=== PATIENT | male | born 1985 | race Caucasian/White ===

== ENCOUNTER 2023-11-28 12:08 | Emergency (ER) | payer OTHER, SELFPAY ==
--- NOTE | 2023-11-28 12:10 | ED.GENMED ---
History of Present Illness
<Marissa Mares PA-C - Last Filed: 11/28/23 13:44>
General
Chief Complaint: Seizure
Source: patient and records
Exam Limitations: none
Time Seen by Provider: 11/28/23 12:10
Nursing documentation reviewed up to this point in time: agreed with
History of Present Illness
History of Present Illness:
38 y/o male with a PMH of epilepsy, anxiety, depression who is presenting to the emergency department today with concerns of a seizure that happened few hours ago. Patient comes from court today where he had a seizure episode and the deputy present
called EMS. I spoke to the deputy present in court on the phone who reported that patient was seen in his chair and then he slouched, clenched his hands, and his eyes rolled in the back of his head for about a minute. Falcon reports that patient
was confused and postictal for around 5 minutes patient states that patient did not fall to the ground. Patient states that he had a seizure 2 weeks ago in which she was hospitalized at [facility] where they monitored him and change his seizure
medication from Keppra to Vimpat. Patient currently endorses a headache, which she states is no different than how he usually feels after her seizures. Patient denies shortness of breath, chest pain, motor weakness, syncopal episode, confusion.
Patient is in [place] because he is making a court appearance but he lives at [facility].
Past History
<Marissa Mares PA-C - Last Filed: 11/28/23 13:44>
Past History
ED Past Medical History: Seizures and Psychiatric
ED Past Surgical History: None
Social History
Tobacco: Non-smoker
Alcohol: Binge drinker
Drug: None
Personal: Single
Living: residential
Review of Systems
<Marissa Mares PA-C - Last Filed: 11/28/23 13:44>
Review of Systems
All Other Systems: ROS reviewed and negative except as documented in HPI and ROS
Phy Exam
<Marissa Mares PA-C - Last Filed: 11/28/23 13:44>
Physical Exam
Physical Exam:
Vitals: Patient's vital signs are stable
General: Patient is well appearing and in no acute distress
Skin: Warm and dry, no rashes or lesions
Head: Normocephalic, atraumatic
Cardiac: Regular rate and rhythm, no murmurs
Pulm: Normal respiratory effort
Abdomen: No abdominal tenderness
Musculoskeletal: Good muscle tone and bulk
Neuro: CN II-XII intact. AAOx3. No focal neurologic deficits.
Course
<Marissa Mares PA-C - Last Filed: 11/28/23 13:44>
Orders/Labs/Results
Orders:
Abnormal Lab Results
11/28/23
12:32
POC Glucose 117 H mg/dl
(70-99)
11/28/23 12:19
11/28/23 12:19
Vital Signs
Initial and Last Documented VS:
Initial Vital Signs
Temp Pulse Resp BP Pulse Ox
98.2 F 95 16 126/82 99
11/28/23 12:15 11/28/23 12:15 11/28/23 12:15 11/28/23 12:15 11/28/23 12:15
Last Documented Vital Signs
Temp Pulse Resp BP Pulse Ox
98.2 F 88 16 131/89 97
11/28/23 12:15 11/28/23 13:14 11/28/23 13:14 11/28/23 13:14 11/28/23 13:14
<Jc Waterman DO - Last Filed: 11/28/23 13:01>
Orders/Labs/Results
Orders:
Abnormal Lab Results
11/28/23
12:32
POC Glucose 117 H mg/dl
(70-99)
11/28/23 12:19
11/28/23 12:19
Vital Signs
Initial and Last Documented VS:
Initial Vital Signs
Temp Pulse Resp BP Pulse Ox
98.2 F 95 16 126/82 99
11/28/23 12:15 11/28/23 12:15 11/28/23 12:15 11/28/23 12:15 11/28/23 12:15
Last Documented Vital Signs
Temp Pulse Resp BP Pulse Ox
98.2 F 88 16 131/89 97
11/28/23 12:15 11/28/23 13:14 11/28/23 13:14 11/28/23 13:14 11/28/23 13:14
<Marissa Mares PA-C - Last Filed: 11/28/23 13:44>
MDM/Problems Addressed
Differential Diagnosis Includes:
petit mal seizure, grand mal seizure, syncope,
MDM/Problems Addressed:
seizure
Chronic conditions affecting care: HTN, Neurological disorder and Psychiatric illness
Acute Exacerbation and/or Progression of Chronic Illness: HTN, Neurological disorder and Psychiatric illness
<PHILIP Smith Last Filed: 11/28/23 13:44>
*Pulse Oximetry
Patient hypoxic: no
*Critical Care Note
Total Time (30-74mins, 75-104mins- exclusive of procedures): Not Applicable
Data Reviewed
Review of Other/Old Records Reveals: Records (reviewed ER physician documentation from 12/09/21, 09/06/16) and Discharge Summary (no discharge summaries in [facility] to review )
Source: patient and records (reviewed records from [facility], patient takes atorvastatin 10 m)
<PHILIP Smith Last Filed: 11/28/23 13:44>
Patient Management
Escalation/DeEscalation of care consider admission/obs:
38 y/o male with a PMH of epilepsy, anxiety, depression who is presenting to the emergency department today with concerns of a seizure that happened few hours ago. Patient comes from court today where he had a seizure episode and the deputy present
called EMS. Falcon described a petit mal seizure, same character of patients previous seizures. Patient was recently switched from keppra to vimpat, has been on vimpat for 2 weeks.
EMS reports that blood sugar was in the low 100s. Blood sugar here is 117. Spoke to neurology engagement quality consultant distillation operator helper who recommends increasing vimpat dose from 100 daily to 150 daily. I wrote paper script for patient, patient aware of plan.
ED Attending Note
<Marissa Mares PA-C - Last Filed: 11/28/23 13:44>
-
Portions of this chart may have been created with voice recognition software.� Occasional wrong word or��sound alike� substitutions may have occurred due to the inherent limitations of voice recognition software.
<Jc Waterman DO - Last Filed: 11/28/23 13:01>
ED Attending Note
Patient seen and examined by attending physician: Yes
I performed the substantive portion of visit, reviewed & personally made and approve the management plan that is documented in note by myself or ORLIN.: Yes
I performed a history and physical exam of patient and discussed management with resident, I reviewed resident's note and agree with documented findings and plan of care.: Yes
ED Attending Note:
I evaluated the patient at bedside. The patient is currently well-appearing. Blood glucose is normal. Neurology was contacted and we are adjusting Vimpat dosing.
Discharge Plan
Departure
Patient Disposition: Home (Routine Discharge)
Date of Disposition: 11/28/23
Time of Disposition: 13:09
Patient with high blood pressure during this ER visit?: Yes
Condition: Good
Discharge Problem:
Petit mal epilepsy
Instructions: Seizures, Adult (DC), Syncope (Fainting) (DC), BLOOD PRESSURE
Prescriptions:
No Action
alprazolam 1 MG tablet
1 mg PO BID
Patient Comments:
Pt states he's trying to wean
quetiapine 100 MG tablet
100 mg PO HS
gabapentin 300 MG capsule
600 mg PO TID
Stand Alone Forms: Return to Work
Activity Restrictions/Additional Instructions:
I have written you a paper script for your lacosamide (Vimpat) increase. Please take 100 mg of vimpat in the A.M. and 50 mg of vimpat at bed time for a total of 150 mg of vimpat daily. I have sent 50 mg tablets to your pharmacy. The maximum dose of
this medication is 200 mg daily, please do not exceed this.
Please return to the emergency department should you experience shortness of breath, chest pain, confusion, persistent seizures, or other concerning signs or symptoms.
Interventions
Interventions:
*Risk Screen - Suicide Last Done: 11/28/23 12:13
*General Assessment Last Done: 11/28/23 12:18
*Neglect/Abuse Screening Last Done: 11/28/23 12:13
ED- Fall Risk Assessment Last Done: 11/28/23 12:18
*ED COVID-19 Vaccine History Last Done: 11/28/23 12:12
*Nursing Disposition Last Done: 11/28/23 13:25
ED- Cardiac Assessment Last Done: 11/28/23 12:14
ED- Neurological Assessment Last Done: 11/28/23 12:14
ED- Pulmonary Assessment Last Done: 11/28/23 12:14
Discharge Date and Time
Print Language: [place]
[2023-11-28 12:15] VITALS: BP 126/82
[2023-11-28 12:34] LABS: Glucose - Point of Care 117 mg/dl (70-99)
[2023-11-28 13:14] VITALS: BP 131/89
== END 2023-11-28 13:26 | disposition home or self-care (01) ==
LOC: EMR 12:08
PROVIDERS: EMERGENCY PHYSICIAN Emergency Medicine
DX: G40.A09 Absence epileptic syndrome, not intractable, without status epilepticus (principal); F41.8 Other specified anxiety disorders
CPT/HCPCS: 99282; 82962